=== PATIENT | female | born 1965 | race Hispanic/Latino ===

== ENCOUNTER 2019-04-09 07:38 | Day surgery (SDC) | payer MEDICAID ==
[2019-04-09] MEDS ORDERED: ASPIRIN EC 325 MG TAB PO ONE (08:05)
[2019-04-09 08:31] VITALS: BP 145/71
[2019-04-09 08:45] LABS: Basophils % (Auto) 1.2 % (0.0-1.8); Eosinophils # (Auto) 0.1 K/mm3 (0.0-0.4); Eosinophils % (Auto) 1.8 % (0.0-4.3); Hematocrit 36.3 % (30.3-42.9); Hemoglobin 12.4 gm/dl (10.1-14.3); Lymphocytes # (Auto) 1.3 K/mm3 (1.2-5.4); Lymphocytes % (Auto) 36.6 % (13.4-35.0); Mean Corpuscular HGB Conc 34 % (30-34); Mean Corpuscular Volume 90 fl (79-97); Monocytes # (Auto) 0.3 K/mm3 (0.0-0.8); Monocytes % (Auto) 9.7 % (0.0-7.3); Platelet Count 131 K/mm3 (140-440); Red Blood Count 4.04 M/mm3 (3.65-5.03); Red Cell Distribution Width 13.7 % (13.2-15.2)
[2019-04-09 08:59] LABS: INR 1.2 (0.87-1.13)
[2019-04-09] MEDS ORDERED: SODIUM CHLORIDE 0.9% 500 ML 500 ML IV SCH (09:00)
[2019-04-09 09:03] LABS: BUN/Creatinine Ratio 23; Blood Urea Nitrogen 14 mg/dL (7-17); Hemolysis Index 1
[2019-04-09] MEDS ORDERED: HEPARIN 10,000 UNITS/10 ML VIAL ONE (09:07)
[2019-04-09] MEDS ORDERED: VERAPAMIL 5 MG/2 ML INJ ONE (09:07)
[2019-04-09] MEDS ORDERED: LIDOCAINE (2%) 20 MG/1 ML VIAL 20 ML MDV INFILTRATI ONE (09:07)
[2019-04-09] MEDS ORDERED: NITROGLYCERIN SYRINGE 0 ML ONE (09:07)
[2019-04-09] MEDS ORDERED: HEPARIN/NS 5000 UNIT/500ML 500 ML IR ONE (09:07)
[2019-04-09] MEDS ORDERED: fentaNYL 100 MCG/2 ML INJ ONE (09:53)
[2019-04-09] MEDS ORDERED: MIDAZOLAM 2 MG/2 ML INJ ONE (09:53)
--- NOTE | 2019-04-10 00:02 | Consultation ---
CARDIOLOGY CONSULTATION REASON FOR CONSULTATION: Advice and opinion regarding chest pain, cardiac catheterization. HISTORY OF PRESENT ILLNESS: The patient was referred by Dr. Jennifer Traylor for a cardiac catheterization. She is a pleasant 53-year-old female with a history of diabetes, hypertension, dyspnea, anxiety, presents here for a cardiac catheterization. Stress test shows questionable ischemia in the mid and apical anterior and anterolateral segments of the myocardium. She is on appropriate medications. She is on baby aspirin. She is here with her . ALLERGIES: TO SULFA. SOCIAL HISTORY: Nonsmoker, nondrinker. FAMILY HISTORY: She does have a family history of heart disease with her father and paternal grandfather. She does have chest pain, but is somewhat atypical. She does complain of shortness of breath at times as well as lower extremity swelling. Other data includes an echocardiogram performed on 03/30, which shows normal LV function without significant valvulopathy. No pericardial effusion. Lower extremity venous ultrasound shows no DVTs. Today, her blood pressure is 130/80. She is afebrile. Tele reveals sinus rhythm. EKG is normal PHYSICAL EXAMINATION: Unremarkable. ASSESSMENT AND PLAN: She ended up having a lot of anxiety. She states she had a difficult IV stick. We placed another IV. She became even more anxious. We put her on the catheterization table and she developed another anxiety attack and states that everything is going " This is a patently untrue and she states that she decided she does not want the procedure. Multiple nurses and staff members are present. I then brought her into the room to talk with her. She states that she does not want the procedure. I explained to her the risks of not having a cardiac catheterization given her risk factors, symptoms and abnormal nuclear stress test. She expresses understanding. Take a baby aspirin, avoid significant exertion until this gets resolved. I did state that nothing would change the next time she came for cardiac catheterization, but she should do so. She will follow up with us in the office. Again, I had a long discussion with the patient and . I spent over 45 minutes in the care of this patient. JOB# [id number] SBAracely/ART
== END 2019-04-09 10:40 | disposition home or self-care (01) ==
LOC: CATHLABREC 07:38
PROVIDERS: ATTEND Internal Medicine
DX: R07.89 Other chest pain (principal); I10 Essential (primary) hypertension; M79.7 Fibromyalgia; M19.90 Unspecified osteoarthritis, unspecified site; F32.9 Major depressive disorder, single episode, unspecified; Z53.8 Procedure and treatment not carried out for other reasons; Z79.899 Other long term (current) drug therapy; Z88.2 Allergy status to sulfonamides; Z79.84 Long term (current) use of oral hypoglycemic drugs; Z98.49 Cataract extraction status, unspecified eye; Z90.49 Acquired absence of other specified parts of digestive tract; Z98.51 Tubal ligation status; Z98.890 Other specified postprocedural states; Z86.2 Personal history of diseases of the blood and blood-forming organs and certain disorders involving the immune mechanism
CPT/HCPCS: 36415; 80048; 85025; 85610; 85730; 93005; 93010; C1894; J1644; J2250; J3010; J7040